=== PATIENT | female | born 1980 | race Caucasian/White ===

== ENCOUNTER 2017-03-04 14:18 | Emergency (ER) | payer BC ==
[~2017-03-04] VITALS: Ht 157.5 cm; Wt 74.8 kg
[2017-03-04 14:23] VITALS: BP_SYST 118
--- NOTE | 2017-03-04 14:27 | NUR ---
Placed in room 08 . Placed on sas developer, blood pressure machine and pulse oximeter. To gown for exam. Side rails up. Report given to David LINTON
--- NOTE | 2017-03-04 14:30 | NUR ---
Pt complains of body aches, pain and gets our of breath easily since Saturday. Pt states when working gets tired easily. 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 Denies fever, n/v or diarrhea. Pt was at urgent care and HGB was 6.7 and they told the pt to come to the ER. No other injuries/complaints per pt or noted.
--- NOTE | 2017-03-04 14:38 | NUR ---
ER AYANA Cates at bedside examining patient.
[2017-03-04] MEDS ORDERED: NACL 0.9% 1,000 ML IV ONE (14:45)
[2017-03-04] MEDS ORDERED: ONDANSETRON HCL 4 MG/2 ML VIAL IVP ONE (14:45)
[2017-03-04 15:04] LABS: BASOPHILS # (AUTO) 0.1 K/uL (0.0-0.2); EOSINOPHILS % (AUTO) 0.5 % (0.0-4.0); LYMPHOCYTES # (AUTO) 1.7 K/uL (1.0-5.5); MONOCYTES # (AUTO) 0.3 K/uL (0.0-1.0)
[2017-03-04 15:07] LABS: BASOPHILS % (AUTO) 1.6 % (0.0-2.0); HEMATOCRIT 26.6 % (36-48); HEMOGLOBIN 7.8 g/dL (12.0-16.0); LYMPHOCYTES % (AUTO) 31.4 % (20.5-51.5); MEAN CORPUSCULAR HEMOGLOBIN 19 pg (27-31); MEAN CORPUSCULAR HGB CONC 29 % (32-36); MEAN CORPUSCULAR VOLUME 65 fL (79.0-98.0); MONOCYTES % (AUTO) 5.8 % (1.7-9.3); NEUTROPHILS # (AUTO) 3.2 K/uL (1.8-7.7); NEUTROPHILS % (AUTO) 60.7 % (40.0-70.0); PLATELET COUNT (AUTO) 474 K/uL (130-430); RED CELL DISTRIBUTION WIDTH 21.7 % (9.0-15.0); WHITE BLOOD COUNT (AUTO) 5.3 K/uL (4.8-10.8)
--- NOTE | 2017-03-04 15:18 | NUR ---
Medication was given, pt tolerated well. No adverse reaction, will continue to monitor.
[2017-03-04 15:19] LABS: CALCIUM 9.5 mg/dL (8.4-11.0); CREATININE 0.53 mg/dL (0.55-1.30); POTASSIUM 4.3 mmol/L (3.5-5.1)
[2017-03-04 15:24] LABS: ALBUMIN 4.1 g/dL (3.4-4.8); TOTAL BILIRUBIN 0.2 mg/dL (0.0-1.0)
[2017-03-04 15:39] LABS: PROTHROMBIN TIME 10.4 SECS (9.5-12.5)
[2017-03-04] MEDS ORDERED: KETOROLAC TROMETHAMINE 30 MG VIAL IVP ONE (16:15)
--- NOTE | 2017-03-04 16:30 | NUR ---
Pt is resting in bed comfortably with no noted distress or discomfort.
[2017-03-04 17:30] VITALS: BP_SYST 115
--- NOTE | 2017-03-04 17:30 | NUR ---
Patient given written and verbal discharge instructions and verbalizes understanding. ER MD discussed with patient the results and treatment provided. Patient in stable condition. ID arm band removed. IV catheter removed intact and dressing applied, no active bleeding. No Rx given. Patient educated on pain management and to follow up with PMD. Pain Scale 0. Opportunity for questions provided and answered.
== END 2017-03-04 17:30 | disposition home or self-care (01) ==
LOC: SED 14:18
DX: D50.9 Iron deficiency anemia, unspecified (principal); Z98.84 Bariatric surgery status
CPT/HCPCS: 36415; 71010; 80053; 81025; 85025; 85610; 85730; 86886; 86900; 86901; 93005; 96361; 96374; 96375; 99285; J1885; J2405; J7030

== ENCOUNTER 2017-10-25 12:07 | Inpatient (IN) | payer SELFPAY ==
[~2017-10-25] VITALS: Ht 160 cm; Wt 77.1 kg
[2017-10-25 12:18] VITALS: BP_SYST 143
[2017-10-25] MEDS ORDERED: MORPHINE 4 MG/ML INJ. SYRINGE IVP ONE (13:00)
[2017-10-25] MEDS ORDERED: ONDANSETRON HCL 4 MG/2 ML VIAL IVP ONE ×2 (13:00→14:55)
[2017-10-25 13:32] LABS: HEMATOCRIT 41.4 % (36-48); HEMOGLOBIN 14.1 g/dL (12.0-16.0); MEAN CORPUSCULAR HEMOGLOBIN 31 pg (27-31); MEAN CORPUSCULAR HGB CONC 34 % (32-36); MEAN CORPUSCULAR VOLUME 92 fL (79.0-98.0); PLATELET COUNT (AUTO) 256 K/uL (130-430); RED BLOOD CELL COUNT(AUTO) 4.51 MIL/uL (4.2-6.2); RED CELL DISTRIBUTION WIDTH 12.1 % (9.0-15.0)
[2017-10-25 13:34] LABS: WHITE BLOOD COUNT (AUTO) 12.4 K/uL (4.8-10.8)
[2017-10-25 13:38] LABS: CALCIUM 8.7 mg/dL (8.4-11.0); CREATININE 0.56 mg/dL (0.55-1.30); POTASSIUM 3.8 mmol/L (3.5-5.1)
[2017-10-25 13:43] LABS: ALBUMIN 4.2 g/dL (3.4-4.8); TOTAL BILIRUBIN 0.4 mg/dL (0.0-1.0)
[2017-10-25 13:49] LABS: ATYPICAL LYMPHOCYTES % 0 % (0-0); BAND % (MANUAL) 2 % (0-6); BASOPHILS % (MANUAL) 1 % (0-2); EOSINOPHILS % (MANUAL) 0 % (0-7); LYMPHOCYTES % (MANUAL) 12 % (20-46); MONOCYTES % (MANUAL) 5 % (0-11)
[2017-10-25] MEDS ORDERED: VANCOMYCIN HCL 1,000 MG in NS 250 ML IV ONE (14:00)
[2017-10-25] MEDS ORDERED: VANCOMYCIN HCL 1000 MG/VIAL IV ONE ×2 (14:05→14:55)
[2017-10-25 14:48] LABS: PROTHROMBIN TIME 10.2 SECS (9.5-12.5)
[2017-10-25 14:53] LABS: BILIRUBIN,URINE NEGATIVE (NEGATIVE); BLOOD, URINE 3+ (NEGATIVE); CLARITY/URINE CLEAR (CLEAR); COLOR,URINE YELLOW (YELLOW); GLUCOSE,URINE NEGATIVE (NEGATIVE); KETONES,URINE 3+ (NEGATIVE); LEUKOCYTE ESTERASE ,URINE NEGATIVE (NEGATIVE); NITRITE, URINE NEGATIVE (NEGATIVE); PH,URINE 5.5 (5.0-8.0); PROTEIN URINE TRACE (NEGATIVE); UROBILINOGEN,URINE 0.2 (0.2-1.0)
[2017-10-25] MEDS ORDERED: NS IRRIG SOLN 1000 ML IR ONE (14:55)
[2017-10-25] MEDS ORDERED: SEVOFLURANE 15 MIN GAS INH ONE (14:55)
[2017-10-25] MEDS ORDERED: LR 1,000 ML IV.SOLN IV ONE (14:55)
[2017-10-25] MEDS ORDERED: MIDAZOLAM HCL 5 MG/5 ML VIAL IVP ONE (14:55)
[2017-10-25] MEDS ORDERED: BUPIVACAINE /PF 0.25% 30 ML VIAL INJ ONE (14:55)
[2017-10-25] MEDS ORDERED: ROCURONIUM BROMIDE 10 MG/ML (ZEMURON) IV ONE (14:55)
[2017-10-25] MEDS ORDERED: MEPERIDINE HCL/PF 100 MG/ML AMP IM ONE (14:55)
[2017-10-25] MEDS ORDERED: PROPOFOL 200MG/ 20ML VIAL (DIPRIVAN) IV ONE (14:55)
[2017-10-25] MEDS ORDERED: metroNIDAZOLE 500 mg/NS 100 ML IV ONE (15:00)
[2017-10-25 15:15] LABS: BACTERIA,URINE FEW /HPF (None Seen); RBC,URINE 0-3 /HPF (0-3)
[2017-10-25] MEDS ORDERED: fentaNYL CITRATE/PF 100 MCG/2 ML AMP IVP PRN ×2 (15:45)
[2017-10-25] MEDS ORDERED: KETOROLAC TROMETHAMINE 30 MG VIAL IVP PRN (15:45)
[2017-10-25] MEDS ORDERED: ONDANSETRON HCL 4 MG/2 ML VIAL IVP PRN ×2 (15:45→19:45)
[2017-10-25] MEDS ORDERED: KETOROLAC TROMETHAMINE 30 MG VIAL ONE (15:54)
[2017-10-25 17:40] VITALS: BP_SYST 125
[2017-10-25 17:49] VITALS: BP_SYST 116
[2017-10-25] MEDS: D5NS 1,000 ML IV SCH (18:28)
[2017-10-25] MEDS ORDERED: MORPHINE 4 MG/ML INJ. SYRINGE IVP PRN ×2 (19:45)
[2017-10-25 20:20] VITALS: BP_SYST 101
[2017-10-25] MEDS: metroNIDAZOLE 500 mg/NS 100 ML IV SCH (21:17)
[2017-10-26 01:36] VITALS: BP_SYST 102
[2017-10-26 05:15] VITALS: BP_SYST 97
[2017-10-26] MEDS: metroNIDAZOLE 500 mg/NS 100 ML IV SCH (05:51)
[2017-10-26] MEDS: D5NS 1,000 ML IV SCH ×2 (05:51→10:15)
[2017-10-26 06:21] LABS: BASOPHILS # (AUTO) 0.1 K/uL (0.0-0.2); BASOPHILS % (AUTO) 0.9 % (0.0-2.0); EOSINOPHILS # (AUTO) 0.1 K/uL (0.0-0.4); HEMATOCRIT 34.9 % (36-48); HEMOGLOBIN 11.8 g/dL (12.0-16.0); LYMPHOCYTES # (AUTO) 1.1 K/uL (1.0-5.5); LYMPHOCYTES % (AUTO) 19.1 % (20.5-51.5); MEAN CORPUSCULAR HEMOGLOBIN 31 pg (27-31); MEAN CORPUSCULAR HGB CONC 34 % (32-36); MEAN CORPUSCULAR VOLUME 92 fL (79.0-98.0); MONOCYTES # (AUTO) 0.5 K/uL (0.0-1.0); MONOCYTES % (AUTO) 8.9 % (1.7-9.3); NEUTROPHILS % (AUTO) 70.1 % (40.0-70.0); PLATELET COUNT (AUTO) 192 K/uL (130-430); RED BLOOD CELL COUNT(AUTO) 3.78 MIL/uL (4.2-6.2); RED CELL DISTRIBUTION WIDTH 12.2 % (9.0-15.0); WHITE BLOOD COUNT (AUTO) 5.8 K/uL (4.8-10.8)
[2017-10-26 06:31] LABS: ALBUMIN 2.8 g/dL (3.4-4.8); CALCIUM 7.9 mg/dL (8.4-11.0); CREATININE 0.5 mg/dL (0.55-1.30); TOTAL BILIRUBIN 0.5 mg/dL (0.0-1.0)
[2017-10-26 06:39] LABS: POTASSIUM 3.6 mmol/L (3.5-5.1)
[2017-10-26 08:04] VITALS: BP_SYST 92
[2017-10-26] MEDS ORDERED: HYDROcodone/ACETAMIN 10-325 MG TAB PO PRN (10:00)
[2017-10-26] MEDS ORDERED: LEVO500T20 PO (12:10)
[2017-10-26] MEDS ORDERED: METR500T PO (12:10)
[2017-10-26] MEDS ORDERED: L.RH1CAP PO (12:11)
[2017-10-26] MEDS ORDERED: HYDR-4100 PO (12:17)
[2017-10-26] MEDS ORDERED: DOCU250C PO (12:18)
[2017-10-26 12:39] VITALS: BP_SYST 110
[2017-10-26 13:28] VITALS: BP_SYST 110
== END 2017-10-26 14:07 | disposition home or self-care (01) | DRG 343 ==
LOC: SED 12:07 → SMU 14:17
PROVIDERS: ADMIT Internal Medicine; ATTEND Internal Medicine
PROC: 0DTJ4ZZ Resection of Appendix, Percutaneous Endoscopic Approach (ICD-10-PCS; principal; 2017-10-25 15:00)
DX: K35.80 Unspecified acute appendicitis (principal); K38.1 Appendicular concretions; Z88.8 Allergy status to other drugs, medicaments and biological substances; Z98.84 Bariatric surgery status
CPT/HCPCS: 36415; 80053; 81000-TC; 81025; 83690-TC; 85007; 85025; 85027; 85610-TC; 85730-TC; 87081; 88304; 96365; 96366; 96375; 99285; J1885; J1956; J2175; J2250; J2270; J2405; J2704; J3370; J3490; J7042; J7050; J7120

== ENCOUNTER 2017-11-28 12:50 | Emergency (ER) | payer SELFPAY ==
[~2017-11-28] VITALS: Ht 157.5 cm; Wt 77.1 kg
[~2017-11-28 12:50] MED LIST: DOCU250C PO; HYDR-4100 PO; L.RH1CAP PO; LEVO500T20 PO; METR500T PO
[2017-11-28 13:00] VITALS: BP_SYST 135
[2017-11-28 13:27] LABS: BILIRUBIN,URINE NEGATIVE (NEGATIVE); BLOOD, URINE NEGATIVE (NEGATIVE); CLARITY/URINE CLEAR (CLEAR); COLOR,URINE YELLOW (YELLOW); GLUCOSE,URINE NEGATIVE (NEGATIVE); KETONES,URINE NEGATIVE (NEGATIVE); LEUKOCYTE ESTERASE ,URINE NEGATIVE (NEGATIVE); NITRITE, URINE NEGATIVE (NEGATIVE); PROTEIN URINE NEGATIVE (NEGATIVE); UROBILINOGEN,URINE 0.2 (0.2-1.0)
[2017-11-28 13:39] LABS: HEMATOCRIT 43.1 % (36-48); HEMOGLOBIN 13.9 g/dL (12.0-16.0); MEAN CORPUSCULAR HEMOGLOBIN 30 pg (27-31); MEAN CORPUSCULAR HGB CONC 32 % (32-36); MEAN CORPUSCULAR VOLUME 92 fL (79.0-98.0); PLATELET COUNT (AUTO) 251 K/uL (130-430); RED BLOOD CELL COUNT(AUTO) 4.67 MIL/uL (4.2-6.2); WHITE BLOOD COUNT (AUTO) 5.2 K/uL (4.8-10.8)
[2017-11-28 13:41] LABS: CALCIUM 9.1 mg/dL (8.4-11.0); CREATININE 0.63 mg/dL (0.55-1.30)
[2017-11-28 13:55] LABS: ALBUMIN 3.7 g/dL (3.4-4.8); TOTAL BILIRUBIN 0.4 mg/dL (0.0-1.0)
[2017-11-28 14:02] LABS: LYMPHOCYTES % (MANUAL) 38 % (20-46)
[2017-11-28 14:03] LABS: BASOPHILS % (MANUAL) 0 % (0-2); EOSINOPHILS % (MANUAL) 0 % (0-7); MONOCYTES % (MANUAL) 6 % (0-11)
[2017-11-28 14:38] VITALS: BP_SYST 133
== END 2017-11-28 14:38 | disposition home or self-care (01) ==
LOC: SED 12:50
DX: B34.9 Viral infection, unspecified (principal); R03.0 Elevated blood-pressure reading, without diagnosis of hypertension; Z98.84 Bariatric surgery status; Z86.2 Personal history of diseases of the blood and blood-forming organs and certain disorders involving the immune mechanism; Z88.1 Allergy status to other antibiotic agents; Z79.899 Other long term (current) drug therapy
CPT/HCPCS: 36415; 80053; 81003; 83690-TC; 84702-TC; 85007; 85027; 99284; J7030